=== PATIENT | female | born 1980 ===

== ENCOUNTER 2024-11-15 07:08 | Day surgery (SDC) | payer OTHER ==
[2024-11-09 08:27] VITALS: BP 96/67
[2024-11-09 09:00] LABS: URINE APPEARANCE Clear; URINE BILIRRUBIN Negative (NEGATIVE); URINE BLOOD Negative; URINE COLOR Yellow; URINE GLUCOSE Negative (NEGATIVE); URINE KETONE Negative (NEGATIVE); URINE LEUKOCYTE Negative; URINE NITRATE Negative; URINE PROTEIN Negative (NEGATIVE); URINE UROBILINOGEN 0.2 E.U./dl
[2024-11-09 09:03] LABS: HEMATOCRIT 33.6 % (36.0-45.00); HEMOGLOBIN 10.7 g/dL (12.0-15.00); MEAN CELL VOLUME 73.5 fL (80.00-100.00); MEAN CORPUSCULAR HEMOGLOBIN 23.5 pg (27.00-32.0); PLATELET COUNT 348 K/uL (150-450); RED BLOOD COUNT 4.57 M/uL (4.00-6.00); RED CELL DISTRIBUTION WIDTH 17.7 % (11.5-14.5)
[2024-11-09 09:05] LABS: URINE BACTERIA 228.8 uL (0.0-1933); URINE CAST 2.06 uL (0.0-1.40); URINE EPITHELIAL CELLS 17.2 uL (0.0-38.8); URINE RBC 28.1 uL (0.0-20.8); URINE WBC 9.1 uL (0.0-23.2)
[2024-11-09 09:21] LABS: INR 1.02; PARTIAL THROMBOPLASTIN TIME 28.8 SECONDS (22.0-34.0); PROTHROMBIN TIME 11.1 SECONDS (9.0-11.5)
[2024-11-09 10:04] LABS: ALBUMIN 3.6 gm/dL (3.4-5.0); BILIRUBIN TOTAL 0.36 mg/dL (0.3-1.2); CALCIUM 9.7 mg/dL (8.5-10.1); CREATININE SERUM 1.48 mg/dL (0.55-1.02); GFR 38.49; GLOBULINA 4.5 G/DL (2.4-3.5); POTASSIUM 4.3 mEq/L (3.5-5.1); TOTAL PROTEIN 8.1 gm/dL (6.4-8.2)
[~2024-11-15] VITALS: Ht 162.6 cm; Wt 130.6 kg
[~2024-11-15 07:08] MED LIST: FENOFIBRIC ACI105 MG; FOLIC ACID0.8 M1; HEMOCYTE-F TAB1 EACH; HYDROCHLOROTHIA25 MG PO; LIPITOR40 MG PO; METFORMIN HCL1000 M2 PO; SYNTHROID75 MCG PO; ZEPBOUND12.5 MG/0.; ZESTRIL40 M1 PO
[2024-11-15] MEDS ORDERED: POVIDONE-IODINE 118 ML BOTT TOP ONE (11:53)
[2024-11-15] MEDS ORDERED: IBU800 MG PO (12:20)
[2024-11-15] MEDS ORDERED: COLACE100 MG PO (12:20)
[2024-11-15] MEDS ORDERED: OXYCONTIN10 M1 PO (12:20)
== END 2024-11-15 17:45 | disposition home or self-care (01) ==
LOC: CIR.AMB 07:08
PROVIDERS: ATTEND Student in an Organized Health Care Education/Training Program
DX: N85.02 Endometrial intraepithelial neoplasia [EIN] (principal); J45.909 Unspecified asthma, uncomplicated; E78.00 Pure hypercholesterolemia, unspecified; I10 Essential (primary) hypertension; E03.8 Other specified hypothyroidism; E66.9 Obesity, unspecified

== ENCOUNTER 2024-12-23 10:30 | Inpatient (IN) | payer OTHER ==
[~2024-12-23] VITALS: Ht 162.6 cm; Wt 93.4 kg
[~2024-12-23 10:30] MED LIST changes: +COLACE100 MG PO; +IBU800 MG PO; +OXYCONTIN10 M1 PO
[2024-12-23 11:39] LABS: URINE APPEARANCE Clear; URINE BILIRRUBIN Negative (NEGATIVE); URINE BLOOD Negative; URINE COLOR Yellow; URINE GLUCOSE Negative (NEGATIVE); URINE KETONE Negative (NEGATIVE); URINE LEUKOCYTE Trace; URINE NITRATE Negative; URINE PROTEIN Negative (NEGATIVE); URINE UROBILINOGEN 0.2 E.U./dl
[2024-12-23 11:43] LABS: URINE BACTERIA 458.9 uL (0.0-1933); URINE CAST 0.58 uL (0.0-1.40); URINE EPITHELIAL CELLS 50.1 uL (0.0-38.8); URINE RBC 126.6 uL (0.0-20.8); URINE WBC 13.6 uL (0.0-23.2)
[2024-12-23 11:44] VITALS: BP 112/74
[2024-12-23 11:51] VITALS: BP 110/74
[2024-12-23 11:55] LABS: BASO % 0.7 % (0.1-1.2); EOS # 0.42 (0.04-0.54); EOS % 4.5 % (0.7-7.0); HEMATOCRIT 33.6 % (34.1-44.9); HEMOGLOBIN 10.3 g/dL (11.2-15.7); LYMPH # 2.65 (1.18-3.74); LYMPH % 28.1 % (19.3-53.1); MEAN CORPUSCULAR HEMOGLOBIN 22.7 pg (25.6-32.2); MONO # 0.46 (0.24-0.82); MONO % 4.9 % (4.7-12.5); NEUT # 5.78 (1.56-6.13); NEUT % 61.4 % (34.0-71.1); PLATELET COUNT 311 K/uL (163-369); RED BLOOD COUNT 4.54 M/uL (3.93-5.22); RED CELL DISTRIBUTION WIDTH 16.5 % (11.6-14.4)
[2024-12-23 12:15] LABS: INR 1.01; PARTIAL THROMBOPLASTIN TIME 26.8 SECONDS (22.0-34.0)
[2024-12-23 12:56] LABS: ALBUMIN 3.5 gm/dL (3.4-5.0); BILIRUBIN TOTAL 0.37 mg/dL (0.3-1.2); CALCIUM 8.4 mg/dL (8.5-10.1); CREATININE SERUM 1.21 mg/dL (0.55-1.02); GFR 48.56; GLOBULINA 3.8 G/DL (2.4-3.5); POTASSIUM 4.62 mEq/L (3.5-5.1); TOTAL PROTEIN 7.3 gm/dL (6.4-8.2)
[2024-12-28] MEDS ORDERED: METRONIDAZOLE/SODIUM CHLORIDE 500 MG/100 ML PIGGYBACK IV ONE (13:29)
[2024-12-28] MEDS ORDERED: CEFAZOLIN SODIUM 1,000 MG VIAL ONE (13:30)
[2024-12-28] MEDS ORDERED: POVIDONE-IODINE 118 ML BOTT TOP ONE (14:45)
[2024-12-28] MEDS ORDERED: CHLORHEXIDINE GLUCONATE 120 ML BOTTLE TOP ONE (14:45)
[2024-12-28] MEDS ORDERED: MORPHINE SULFATE 4 MG/ML CARTRIDGE IV PRN (19:15)
[2024-12-28] MEDS ORDERED: RINGERS SOLUTION,LACTATED 1,000 ML IV SCH (19:15)
[2024-12-28] MEDS ORDERED: OxyCODONE HCL 5 MG TABLET (ROXICODONE) PO PRN (19:30)
[2024-12-28] MEDS ORDERED: ONDANSETRON HCL 2 MG/ML VIAL IV SCH (21:00)
[2024-12-28 22:07] VITALS: BP 112/79
[2024-12-29 00:48] VITALS: BP 99/60
[2024-12-29] MEDS ORDERED: ACETAMINOPHEN 500 MG GEL..CAP PO SCH (01:00)
[2024-12-29] MEDS ORDERED: IBUprofen 800 MG TABLET PO SCH (01:00)
[2024-12-29 06:46] LABS: BASO % 0.3 % (0.1-1.2); EOS # 0.11 (0.04-0.54); HEMATOCRIT 29.5 % (34.1-44.9); HEMOGLOBIN 9.1 g/dL (11.2-15.7); LYMPH % 17.5 % (19.3-53.1); MONO # 0.66 (0.24-0.82); MONO % 5.8 % (4.7-12.5); NEUT % 75.1 % (34.0-71.1); PLATELET COUNT 267 K/uL (163-369); RED BLOOD COUNT 3.96 M/uL (3.93-5.22); RED CELL DISTRIBUTION WIDTH 16.4 % (11.6-14.4)
[2024-12-29 07:15] LABS: ALBUMIN 2.8 gm/dL (3.4-5.0); BILIRUBIN TOTAL 0.39 mg/dL (0.3-1.2); CREATININE SERUM 1.16 mg/dL (0.55-1.02); GFR 50.99; GLOBULINA 3.1 G/DL (2.4-3.5); POTASSIUM 4.12 mEq/L (3.5-5.1); TOTAL PROTEIN 5.9 gm/dL (6.4-8.2)
[2024-12-29 08:00] VITALS: BP 96/61
[2024-12-29] MEDS ORDERED: DOCUSATE SODIUM 100MG CAP PO SCH (09:00)
[2024-12-29 16:03] VITALS: BP 92/65
[2024-12-29] MEDS ORDERED: COLACE100 MG PO (17:29)
[2024-12-29] MEDS ORDERED: IBUPROFEN800 MG PO (17:29)
[2024-12-29] MEDS ORDERED: OXYCODONE HCL5 MG PO (17:29)
== END 2024-12-29 17:37 | disposition home or self-care (01) | DRG 743 ==
LOC: SURH 12-28 10:30 → O/R 12-28 14:47 → OB/GYN 12-28 14:47
PROVIDERS: ADMIT Student in an Organized Health Care Education/Training Program; ATTEND Student in an Organized Health Care Education/Training Program
PROC: 0UT74ZZ Resection of Bilateral Fallopian Tubes, Percutaneous Endoscopic Approach (ICD-10-PCS; 2024-12-28)
PROC: 0TJB8ZZ Inspection of Bladder, Via Natural or Artificial Opening Endoscopic (ICD-10-PCS; 2024-12-28)
PROC: 0UT94ZZ Resection of Uterus, Percutaneous Endoscopic Approach (ICD-10-PCS; principal; 2024-12-28 16:45)
DX: N84.0 Polyp of corpus uteri (principal); N72 Inflammatory disease of cervix uteri